=== PATIENT | female | born 1955 | race Caucasian/White ===

== ENCOUNTER 2019-04-24 19:16 | Inpatient (IN) | payer OTHER, BC ==
[~2019-04-24] VITALS: Ht 172.7 cm; Wt 100.9 kg
[2019-04-24 19:39] LABS: URINE BILIRUBIN NEGATIVE (Negative); URINE BLOOD NEGATIVE (Negative); URINE CLARITY CLEAR; URINE COLOR YELLOW; URINE GLUCOSE-RANDOM* NEGATIVE (Negative); URINE KETONES NEGATIVE (Negative); URINE LEUKOCYTES-REFLEX 1+ (Negative); URINE NITRITE-REFLEX NEGATIVE (Negative); URINE PROTEIN (DIPSTICK) NEGATIVE (Negative); URINE SPECIFIC GRAVITY 1.025 (1.005-1.035); URINE UROBILINOGEN 0.2 E.U./dl (0.2-1.0)
[2019-04-24 19:48] LABS: BACTERIA-REFLEX None Seen /HPF (None Seen); CRYSTALS None Seen /LPF (None Seen); HYALINE CASTS 0-3 Few /LPF (None Seen); MUCUS 4-6 Moderate strn/LPF (None Seen); SQUAMOUS 0-3 Few /LPF (0-3); URINE RBC 3-10 Few /HPF (0-2); URINE WBC-REFLEX 6-15 Few /HPF (0-5)
[2019-04-24 19:52] VITALS: BP 88/50
[2019-04-24 20:25] LABS: ABSOLUTE NEUTROPHILS 6.4 thou/uL (1.4-8.2); BASOPHILS 1.2 % (0.0-2.0); EOSINOPHILS 3.2 % (0.0-3.0); HEMATOCRIT 46.5 % (37.0-47.0); HEMOGLOBIN 15.5 gm/dL (12.0-15.0); LYMPHOCYTES 21.8 % (24.0-44.0); MCH 29.4 pg (26.0-34.0); MCHC 33.3 g/dL (28.0-37.0); MCV 88.2 fL (80.0-100.0); MONOCYTES 6.7 % (1.0-8.0); PLATELET COUNT 272 thou/uL (150-400); POLYS 67.1 % (36.0-66.0); RBC 5.27 mil/uL (4.20-5.00); RDW 13.9 % (10.5-14.5); WBC 9.5 thou/uL (4.0-11.0)
[2019-04-24 20:34] LABS: ANION GAP 13 mmol/L (7-16); BUN 57 mg/dL (7-18); CALCIUM 9.6 mg/dL (8.5-10.1); CHLORIDE 102 mmol/L (98-107); CO2 20 mmol/L (21-32); CREATININE 2.3 mg/dL (0.6-1.0); GLUCOSE 247 mg/dL (74-106); POTASSIUM 5.3 mmol/L (3.5-5.1); SODIUM 135 mmol/L (136-145)
[2019-04-24 20:44] LABS: SGOT 9 U/L (15-37); SGPT 22 U/L (30-65); TOTAL BILIRUBIN 0.4 mg/dL (<0.1-1.0); TOTAL PROTEIN 7.5 g/dL (6.4-8.2); TROPONIN-I <0.06 ng/mL (<0.06)
[2019-04-24] MEDS ORDERED: ZYRTEC10 M5 PO (21:09)
[2019-04-24] MEDS ORDERED: [UNRECOGNIZED DRUG - OTHER] SUBQ (21:09)
[2019-04-24] MEDS ORDERED: CELEXA10 MG PO (21:09)
[2019-04-24] MEDS ORDERED: BENADRYL25 MG PO (21:10)
[2019-04-24] MEDS ORDERED: TRAZODONE HCL100 MG PO (21:10)
[2019-04-24] MEDS ORDERED: TRULICITY1.5 MG/0.5 SUBQ (21:10)
[2019-04-24] MEDS ORDERED: FARXIGA PO (21:11)
[2019-04-24 21:43] VITALS: BP 91/39
[2019-04-24 21:55] VITALS: BP 119/57
[2019-04-24 22:21] VITALS: BP 122/56
[2019-04-24] MEDS ORDERED: CETIRIZINE HCL5 MG PO (22:56)
[2019-04-24] MEDS ORDERED: XANAX 0.5 MG0.5 MG PO (22:57)
[2019-04-25 00:51] VITALS: BP 146/66
[2019-04-25] MEDS ORDERED: OLMESARTAN-HCT1 EAC1 PO (03:23)
--- NOTE | 2019-04-25 03:55 | NUR ---
PT. ARRIVED AT 2230; ABLE TO WALK FROM STRETCHER TO BED; AOX4; C/O PAIN OVER UPPER ABDOMEN; BELCHING; ST. HAVING DIARRHEA DURING THE LAST DAYS; PER PROTOCOL ON ISOLATION; STOOL SAMPLE SENT FROM ER; BS 148; SECTIONIZER NOTIFIED; PER ORDER GIVEN 30 UNITS OF INSULIN; C/O NAUSEA; PRN MEDICATION GIVEN; C/O HEART BURN; NO NOTIFIED; PER ORDER TO GIVE EARLY FAMOTIDINE; ABLE TO REST FOR A FEW HOURS; ASSESSMENT COMPLETE; ASSESSMENT CHARGED; FOLLOWING POC; MONITORING; WILL PASS ON REPORT.
[2019-04-25 04:24] LABS: CALCIUM 8.8 mg/dL (8.5-10.1); CREATININE 1.5 mg/dL (0.6-1.0); MAGNESIUM 2.2 mg/dL (1.8-2.4)
[2019-04-25 04:55] VITALS: BP 96/57
[2019-04-25 04:55] LABS: HEMATOCRIT 45.1 % (37.0-47.0); MCH 29.7 pg (26.0-34.0); MCHC 33.3 g/dL (28.0-37.0); MCV 89.1 fL (80.0-100.0); RBC 5.07 mil/uL (4.20-5.00); RDW 14.1 % (10.5-14.5); WBC 10.2 thou/uL (4.0-11.0)
--- NOTE | 2019-04-25 07:34 | EKG ---
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 : 1955 Requested By: iG Lopez Order Number: [id number] MD: Emiliano Hare Measurements Intervals [place] Rate: 78 P: 67 [place]: 179 QRS: 37 QRSD: 107 T: 36 QT: 369 QTc: 421 Interpretive Statements Sinus rhythm Inferior infarct, age indeterminate Poor R wave progression No previous ECG available for comparison Electronically Signed On 04-25-2019 7:34:11 CDT by Emiliano Hare [email or web address] ��������������������������������������������� <ELECTRONICALLY SIGNED> ���������������������������������������� By: Emiliano Hare MD, [facility] ��������������������������������������������� 04/25/19733 54 [birth year] Emiliano Hare MD, FACC /EPI
[2019-04-25 08:33] VITALS: BP 105/54
[2019-04-25] MEDS ORDERED: ALDACTONE50 MG PO (10:03)
--- NOTE | 2019-04-25 10:38 | NUR ---
Assess due to high nutrition risk screening trigger. Admitted for MARIANELA, dehydration and diarrhea. Cdiff results pending. Hx diabetes-pt states her diabetic medication was changed to Trulicity and she has lost about 25 lb over 3 mo and change in appetite which was a reported side effect. Drank clear liquids this am and felt ready to start solids-awaiting order. Low nutrition risk at this time.
[2019-04-25 12:38] VITALS: BP 98/57
[2019-04-25 17:37] VITALS: BP 129/72
--- NOTE | 2019-04-25 18:40 | NUR ---
ASSUMED CARE OF PT AT SHIFT CHANGE. ASSESSMENT CHARTED. MEDS GIVEN PER DEC. PT ALERT AND ORIENTED, VSS, DENIES PAIN, NO C/O NAUSEA/VOMIT, PT DENIES LOOSE STOOLS, APPETITE ADEQUATE, PT UP AD ALESSANDRO. C DIFF SAMPLE NEGATIVE, ISOLATION DC'D. TELE DC'D PER PHYSICIAN ORDERS. PT DENIES CONCERNS AT THIS TIME. CONTINUING TO MONITOR.
[2019-04-25 20:12] VITALS: BP 115/56
--- NOTE | 2019-04-26 03:24 | NUR ---
RECEIVED PT'S CARE AT 1910; PT. ON BED; AOX4; DURING ASSESSMENT NO C/O N/V; NO C/O ABDOMINAL PAIN; ST. NOT HAVING DIARRHEA; NO BM ON 04/25/19; ASKED IF CAN BE D/C DURING ASSESSMENT; EXPLAINED D/C ARE PERFORM ON THE MORNING; ST. UNDERSTANDING; REFUSED BP MEDICATION; REQUESTED SCHEDULE MEDICATION LATER ON THE NIGHT; INSULIN MEDICATION GIVEN; EDUCATED TO INFORM IMMEDIATELY IF HAVING HEADACHES OR SWEATING; ST. UNDERSTANDING; JUICE & CRACKERS LEFT AT THE BED SIDE; ABLE TO REST WITH EYES CLOSE AFTER MIDNIGHT; ASSESSMENT CHARGED; FOLLOWING POC; MONITORING; WILL PASS ON REPORT.
[2019-04-26 03:46] VITALS: BP 114/51
[2019-04-26 06:39] LABS: CALCIUM 8.8 mg/dL (8.5-10.1); CREATININE 1.1 mg/dL (0.6-1.0)
[2019-04-26 06:41] LABS: POTASSIUM 5.4 mmol/L (3.5-5.1)
[2019-04-26 07:16] VITALS: BP 129/59
[2019-04-26 11:24] VITALS: BP 130/66
[2019-04-26 12:27] LABS: CALCIUM 9.3 mg/dL (8.5-10.1); POTASSIUM 5.6 mmol/L (3.5-5.1)
[2019-04-26 15:30] VITALS: BP 114/51
[2019-04-26 19:59] VITALS: BP 149/81
[2019-04-26 20:33] VITALS: BP 149/81
--- NOTE | 2019-04-26 20:44 | NUR ---
ASSUMED CARE OF PT AT SHIFT CHANGE. ASSESSMENT CHARTED. MEDS GIVEN PER DEC. PT ALERT AND ORIENTED, VSS, DENIES PAIN. PT EAGER TO GO HOME. POTASSIUM LAB ELEVATED, PROVIDER NOTIFIED, ORDERS RECEIVED, POTASSIUM LEVEL REMAINED ELEVATED, PROVIDER NOTIFIED AGAIN, ORDERS RECEIVED. PM POTASSIUM LAB BACK NORMAL, PHYSICIAN NOTIFIED. DC ORDERS AKNOWLEDGED AND IMPLEMENTED. DC INSTRUCTIONS DISCUSSED WITH PT, COMMUNICATES UNDERSTANDING. PT LEFT UNIT AT APPROX 2039 WITH ALL BELONGINGS. IV REMOVED.
== END 2019-04-26 20:40 | disposition home or self-care (01) | DRG 391 ==
LOC: ER 19:16 → EROBS 20:58 → 2N 20:58
PROVIDERS: Nurse Practitioner Acute Care; Nurse Practitioner Family; ADMIT Internal Medicine
DX: A08.4 Viral intestinal infection, unspecified (principal); N17.0 Acute kidney failure with tubular necrosis; N39.0 Urinary tract infection, site not specified; E87.5 Hyperkalemia; E86.0 Dehydration; F41.1 Generalized anxiety disorder; E11.65 Type 2 diabetes mellitus with hyperglycemia; I95.1 Orthostatic hypotension; J45.909 Unspecified asthma, uncomplicated; I10 Essential (primary) hypertension; K21.9 Gastro-esophageal reflux disease without esophagitis; Z88.3 Allergy status to other anti-infective agents; Z88.8 Allergy status to other drugs, medicaments and biological substances; Z90.49 Acquired absence of other specified parts of digestive tract
CPT/HCPCS: 10081; 10194